=== PATIENT | female | born 1950 ===

== ENCOUNTER 2020-05-14 10:25 | Outpatient (CLI) | payer OTHER ==
[~2020-05-14 10:25] MED LIST: AMBIEN10 MG PO; DOCUSATE SODIU100 MG PO; PERCOCET 5/3251 TAB PO
== END 2020-05-14 10:31 | disposition home or self-care (01) ==
LOC: TOM 10:25
PROVIDERS: ATTEND Internal Medicine Gastroenterology
DX: K44.9 Diaphragmatic hernia without obstruction or gangrene (principal); K64.0 First degree hemorrhoids; D18.03 Hemangioma of intra-abdominal structures; K31.89 Other diseases of stomach and duodenum; Z86.010 Personal history of colon polyps; B96.81 Helicobacter pylori [H. pylori] as the cause of diseases classified elsewhere